=== PATIENT | male | born 1930 | race Asian ===

== ENCOUNTER → 2017-06-02 | Outpatient (CLI) | payer MEDICARE, OTHER ==
[~2017-06-02] MED LIST: ALLO100T PO; CIPR-278 PO; FINA5TAB41 PO; LEVO75 PO; METR500 PO; OMEP10 PO; SIMV5TAB6 PO
[2017-06-02 11:46] LABS: BASOPHILS # (AUTO) 0.04 K/uL (0.00-0.20); BASOPHILS % (AUTO) 0.6 % (0.0-2.0); EOSINOPHILS # (AUTO) 0.24 K/uL (0.00-0.70); EOSINOPHILS % (AUTO) 3.99 % (1.0-6.0); HEMATOCRIT 36.7 % (41-53); HEMOGLOBIN 12.3 g/dL (13.5-17.5); LYMPHOCYTES # (AUTO) 1.8 K/uL (1.0-4.8); MEAN CORPUSCULAR HGB CONC 33.5 G/dL (31.0-37.0); MEAN CORPUSCULAR VOLUME 96 fL (80-100); MONOCYTES # (AUTO) 0.5 K/uL (0.1-1.0); MONOCYTES % (AUTO) 8.8 % (2.0-9.0); NEUTROPHILS # (AUTO) 3.4 K/uL (1.8-7.7); NEUTROPHILS % (AUTO) 56.7 % (40.0-70.0); PLATELET COUNT (AUTO) 120 K/uL (150-450); RED BLOOD CELL COUNT(AUTO) 3.84 MIL/uL (4.50-5.90); RED CELL DISTRIBUTION WIDTH 15.3 % (11.5-14.5)
[2017-06-02 11:57] LABS: POTASSIUM 4.7 mmol/L (3.5-5.1)
[2017-06-02 11:58] LABS: CALCIUM, TOTAL 9.1 mg/dL (8.8-10.5); CREATININE 1.72 mg/dL (0.60-1.30); THYROID STIMULATING HORMONE 0.81 uIU/mL (0.36-3.74)
== END | disposition home or self-care (01) ==
LOC: LABPV 08:39
PROVIDERS: ATTEND Internal Medicine Nephrology
DX: N18.3 Chronic kidney disease, stage 3 (moderate) (principal); N28.1 Cyst of kidney, acquired; E78.5 Hyperlipidemia, unspecified
CPT/HCPCS: 82306; 84443

== ENCOUNTER → 2017-07-14 | Outpatient (CLI) | payer MEDICARE, OTHER ==
[2017-07-14 12:10] LABS: BASOPHILS % (AUTO) 0.3 % (0.0-2.0); EOSINOPHILS % (AUTO) 3.4 % (1.0-6.0); HEMATOCRIT 38.4 % (41-53); HEMOGLOBIN 12.8 g/dL (13.5-17.5); LYMPHOCYTES # (AUTO) 1.3 K/uL (1.0-4.8); LYMPHOCYTES % (AUTO) 21.3 % (22.0-44.0); MEAN CORPUSCULAR HEMOGLOBIN 32.2 pg (26.0-34.0); MEAN CORPUSCULAR HGB CONC 33.2 G/dL (31.0-37.0); MEAN CORPUSCULAR VOLUME 97 fL (80-100); MONOCYTES # (AUTO) 0.6 K/uL (0.1-1.0); MONOCYTES % (AUTO) 10.1 % (2.0-9.0); NEUTROPHILS # (AUTO) 3.9 K/uL (1.8-7.7); NEUTROPHILS % (AUTO) 64.9 % (40.0-70.0); PLATELET COUNT (AUTO) 151 K/uL (150-450); RED BLOOD CELL COUNT(AUTO) 3.96 MIL/uL (4.50-5.90); RED CELL DISTRIBUTION WIDTH 15.2 % (11.5-14.5)
[2017-07-14 12:20] LABS: ALBUMIN 3.6 g/dL (3.4-5.0); BILIRUBIN,TOTAL 0.5 mg/dL (0.1-1.0); CREATININE 1.43 mg/dL (0.60-1.30); POTASSIUM 4.2 mmol/L (3.5-5.1); TOTAL PROTEIN, SERUM 7.3 g/dL (6.4-8.2)
== END | disposition home or self-care (01) ==
LOC: LABPV 09:14
PROVIDERS: ATTEND Student in an Organized Health Care Education/Training Program
DX: B35.1 Tinea unguium (principal)

== ENCOUNTER → 2017-10-22 | Outpatient (CLI) | payer MEDICARE, OTHER | END | disposition home or self-care (01) | LOC: RADPV 08:38 | PROVIDERS: ATTEND Internal Medicine Pulmonary Disease | DX: J15.9 Unspecified bacterial pneumonia (principal); J98.4 Other disorders of lung; I70.0 Atherosclerosis of aorta | CPT/HCPCS: 71046 ==

== ENCOUNTER → 2017-10-30 | Outpatient (CLI) | payer MEDICARE, OTHER | END | disposition home or self-care (01) | LOC: RADMN 09:24 | PROVIDERS: ATTEND Internal Medicine Pulmonary Disease | DX: J84.89 Other specified interstitial pulmonary diseases (principal); I71.9 Aortic aneurysm of unspecified site, without rupture; I25.10 Atherosclerotic heart disease of native coronary artery without angina pectoris; I70.0 Atherosclerosis of aorta | CPT/HCPCS: 71250 ==

== ENCOUNTER → 2017-11-10 | Outpatient (CLI) | payer MEDICARE, OTHER ==
[2017-11-10 10:38] LABS: APPEARANCE,URINE CLEAR (CLEAR); BILIRUBIN,URINE NEGATIVE (NEGATIVE); GLUCOSE, URINE (UA) NEGATIVE (NEGATIVE); KETONES,URINE NEGATIVE (NEGATIVE); LEUKOCYTE ESTERASE ,URINE NEGATIVE (NEGATIVE); NITRATE,URINE NEGATIVE (NEGATIVE); OCCULT BLOOD,URINE NEGATIVE (NEGATIVE); PROTEIN,URINE TRACE (NEGATIVE); UROBILINOGEN,URINE 0.2 mg/dL (<=1.0)
[2017-11-10 10:44] LABS: CALCIUM, TOTAL 8.6 mg/dL (8.8-10.5); CREATININE 1.18 mg/dL (0.60-1.30); POTASSIUM 3.8 mmol/L (3.5-5.1)
== END | disposition home or self-care (01) ==
LOC: LABPV 08:31
PROVIDERS: ATTEND Internal Medicine Nephrology
DX: I12.9 Hypertensive chronic kidney disease with stage 1 through stage 4 chronic kidney disease, or unspecified chronic kidney disease (principal); N18.3 Chronic kidney disease, stage 3 (moderate); N28.1 Cyst of kidney, acquired; E78.5 Hyperlipidemia, unspecified
CPT/HCPCS: 83970

== ENCOUNTER → 2018-03-09 | Outpatient (CLI) | payer MEDICARE, OTHER ==
[2018-03-09 09:51] LABS: ALBUMIN 3.5 g/dL (3.4-5.0); BILIRUBIN,TOTAL 0.9 mg/dL (0.1-1.0); CALCIUM, TOTAL 8.9 mg/dL (8.8-10.5); CHOL/HDL RATIO 2.5 (4.2-7.3); CREATININE 1.47 mg/dL (0.60-1.30); POTASSIUM 4.1 mmol/L (3.5-5.1); THYROID STIMULATING HORMONE 1.34 uIU/mL (0.36-3.74); TOTAL PROTEIN, SERUM 7.5 g/dL (6.4-8.2)
== END | disposition home or self-care (01) ==
LOC: LABPV 07:50
PROVIDERS: ATTEND Internal Medicine Nephrology
DX: N18.3 Chronic kidney disease, stage 3 (moderate) (principal); N28.1 Cyst of kidney, acquired; E78.5 Hyperlipidemia, unspecified
CPT/HCPCS: 84443

== ENCOUNTER → 2018-07-20 | Outpatient (CLI) | payer MEDICARE, OTHER ==
[2018-07-20 10:08] LABS: CREATININE,URINE RANDOM 264.3 mg/dL (30.0-125.0)
[2018-07-20 15:45] LABS: CALCIUM, TOTAL 9.2 mg/dL (8.8-10.5); CREATININE 1.48 mg/dL (0.60-1.30); POTASSIUM 4.1 mmol/L (3.5-5.1)
== END | disposition home or self-care (01) ==
LOC: LABPV 08:09
PROVIDERS: ATTEND Internal Medicine Nephrology
DX: I12.9 Hypertensive chronic kidney disease with stage 1 through stage 4 chronic kidney disease, or unspecified chronic kidney disease (principal); N18.3 Chronic kidney disease, stage 3 (moderate); E78.5 Hyperlipidemia, unspecified
CPT/HCPCS: 82570; 84156

== ENCOUNTER → 2018-08-09 | Outpatient (CLI) | payer MEDICARE, OTHER | END | disposition home or self-care (01) | LOC: RADMN 08:43 | PROVIDERS: ATTEND Internal Medicine Pulmonary Disease | DX: J43.2 Centrilobular emphysema (principal); I51.7 Cardiomegaly; I71.9 Aortic aneurysm of unspecified site, without rupture; I70.0 Atherosclerosis of aorta; J84.112 Idiopathic pulmonary fibrosis; R59.1 Generalized enlarged lymph nodes; N28.89 Other specified disorders of kidney and ureter | CPT/HCPCS: 71250 ==

== ENCOUNTER → 2018-08-11 | Outpatient (CLI) | payer MEDICARE, OTHER | END | disposition home or self-care (01) | LOC: LABPV 08:28 | PROVIDERS: ATTEND Internal Medicine Pulmonary Disease | DX: J84.112 Idiopathic pulmonary fibrosis (principal) | CPT/HCPCS: 85651; 86038; 86256; 86430 ==

== ENCOUNTER → 2018-09-01 | Outpatient (CLI) | payer MEDICARE, OTHER ==
[2018-09-01 12:53] LABS: ALBUMIN 3.6 g/dL (3.4-5.0); BILIRUBIN,DIRECT 0.2 mg/dL (0.00-0.20); BILIRUBIN,TOTAL 0.5 mg/dL (0.1-1.0); TOTAL PROTEIN, SERUM 7.5 g/dL (6.4-8.2)
== END | disposition home or self-care (01) ==
LOC: LABPV 10:31
PROVIDERS: ATTEND Internal Medicine Pulmonary Disease
DX: J84.112 Idiopathic pulmonary fibrosis (principal)

== ENCOUNTER 2018-10-29 10:19 | Inpatient (IN) | payer MEDICARE, OTHER ==
[~2018-10-29] VITALS: Ht 154.9 cm; Wt 48.1 kg
[~2018-10-29 10:19] MED LIST changes: +ACLI400A2 IH; +ADV250 IH; +ALBU8HFA IH; -CIPR-278 PO; +DILT120C88 PO; +FLUT1BLS IH; +IPRAHFA IH; +MONT10TA21 PO; +SIMV5TAB59 PO; -SIMV5TAB6 PO
[2018-10-29] MEDS ORDERED: LEVO50 PO (10:56)
[2018-10-29] MEDS ORDERED: SIMV-260 PO (10:56)
[2018-10-29] MEDS ORDERED: OMEP20 PO (10:56)
[2018-10-29 11:47] LABS: BASOPHILS % (AUTO) 0.9 % (0.0-2.0); EOSINOPHILS % (AUTO) 0.9 % (1.0-6.0); HEMATOCRIT 43.5 % (41-53); HEMOGLOBIN 14.3 g/dL (13.5-17.5); LYMPHOCYTES # (AUTO) 2.5 K/uL (1.0-4.8); LYMPHOCYTES % (AUTO) 32.8 % (22.0-44.0); MEAN CORPUSCULAR HEMOGLOBIN 30.9 pg (26.0-34.0); MEAN CORPUSCULAR HGB CONC 32.9 G/dL (31.0-37.0); MEAN CORPUSCULAR VOLUME 94 fL (80-100); MONOCYTES # (AUTO) 0.6 K/uL (0.1-1.0); NEUTROPHILS # (AUTO) 4.3 K/uL (1.8-7.7); NEUTROPHILS % (AUTO) 57.4 % (40.0-70.0); RED BLOOD CELL COUNT(AUTO) 4.64 MIL/uL (4.50-5.90); RED CELL DISTRIBUTION WIDTH 17.6 % (11.5-14.5)
[2018-10-29 11:53] LABS: PLATELET COUNT (AUTO) 76 K/uL (150-450)
[2018-10-29 11:58] LABS: INR 1.1 (0.9-1.1); PROTHROMBIN TIME 11.1 SEC (9.4-11.6)
[2018-10-29 12:12] LABS: ALBUMIN 2.7 g/dL (3.4-5.0); BILIRUBIN,TOTAL 0.6 mg/dL (0.1-1.0); CALCIUM, TOTAL 8.7 mg/dL (8.8-10.5); CREATININE 1.43 mg/dL (0.60-1.30); POTASSIUM 4.7 mmol/L (3.5-5.1); TOTAL PROTEIN, SERUM 6.2 g/dL (6.4-8.2)
[2018-10-29] MEDS ORDERED: MethylPREDNISolone SOD SUCC 125 MG/2 ML VIAL IVP ONE (14:00)
[2018-10-29] MEDS ORDERED: ALBUTEROL SULFATE 2.5 MG/0.5 ML NEB SOLUTION NEB ONE (14:00)
[2018-10-29] MEDS ORDERED: CefTRIAXone 1 GM/DEXTROSE 50 ML IV ONE (14:00)
[2018-10-29] MEDS ORDERED: IPRATROPIUM BROMIDE 0.5 MG/2.5 ML NEB SOLUTION NEB ONE (14:00)
[2018-10-29] MEDS ORDERED: AZITHROMYCIN 500 MG/NS 250 ML IV ONE (14:00)
[2018-10-29 14:07] LABS: APPEARANCE,URINE CLEAR (CLEAR); BILIRUBIN,URINE NEGATIVE (NEGATIVE); GLUCOSE, URINE (UA) 100 mg/dL (NEGATIVE); KETONES,URINE NEGATIVE (NEGATIVE); LEUKOCYTE ESTERASE ,URINE NEGATIVE (NEGATIVE); NITRATE,URINE NEGATIVE (NEGATIVE); OCCULT BLOOD,URINE NEGATIVE (NEGATIVE); PH,URINE 5.5 (5.0-8.0); PROTEIN,URINE SEE CONFIRM (NEGATIVE); UROBILINOGEN,URINE 0.2 mg/dL (<=1.0)
[2018-10-29 14:14] LABS: SULFOSALICYLIC ACID,URINE Trace (Negative)
[2018-10-29 14:15] LABS: BACTERIA,URINE None Seen /HPF (None Seen); RBC,URINE None Seen /HPF (0-2); SQUAMOUS EPITHELIAL CELL,UR Few /LPF (None Seen); WBC,URINE 0-2 /HPF (0-5)
[2018-10-29] MEDS ORDERED: ACETAMINOPHEN 500 MG TABLET PO ONE (15:15)
[2018-10-29 18:59] VITALS: BP 131/78
[2018-10-29 19:57] VITALS: BP 121/60
[2018-10-29] MEDS: BUDESONIDE 0.5 MG/2 ML NEB SOLUTION NEB SCH (20:59)
[2018-10-29] MEDS ORDERED: ZOLPIDEM TARTRATE 5 MG TABLET PO PRN (23:15)
[2018-10-29] MEDS ORDERED: MAGNESIUM HYDROXIDE SUSPENSION 30 ML UDCUP PO PRN (23:15)
[2018-10-29] MEDS ORDERED: ONDANSETRON HCL 4 MG/2 ML VIAL IVP PRN (23:15)
[2018-10-29] MEDS ORDERED: BISACODYL 10 MG RECTAL RECTAL SUPPOSITORY PR PRN (23:15)
[2018-10-29] MEDS ORDERED: OxyCODONE HCL/ACETAMINOPHEN 5-325 MG TABLET PO PRN (23:15)
[2018-10-29] MEDS ORDERED: ALBUTEROL SULFATE 2.5 MG/0.5 ML NEB SOLUTION NEB PRN (23:15)
[2018-10-29] MEDS ORDERED: ACETAMINOPHEN 325 MG TABLET PO PRN (23:15)
[2018-10-29] MEDS ORDERED: MORPHINE SULFATE 4 MG/ML SYRINGE IVP PRN (23:15)
[2018-10-29 23:22] VITALS: BP 120/70
[2018-10-29] MEDS: MethylPREDNISolone SOD SUCC 125 MG/2 ML VIAL IVP SCH (23:38)
[2018-10-30] VITALS (7 sets, daily range): BP systolic 98–144; BP diastolic 50–78
[2018-10-30] MEDS ORDERED: HEPARIN SODIUM,PORCINE 5,000 UNITS/ML VIAL SQ SCH
[2018-10-30] MEDS ORDERED: MethylPREDNISolone SOD SUCC 125 MG/2 ML VIAL IVP SCH
[2018-10-30] MEDS: ALBUTEROL SULFATE 2.5 MG/0.5 ML NEB SOLUTION NEB SCH ×6 (01:05→23:27)
[2018-10-30] MEDS: IPRATROPIUM BROMIDE 0.5 MG/2.5 ML NEB SOLUTION NEB SCH ×6 (01:13→23:27)
[2018-10-30] MEDS: MethylPREDNISolone SOD SUCC 125 MG/2 ML VIAL IVP SCH ×4 (06:02→23:55)
[2018-10-30] MEDS: LEVOTHYROXINE SODIUM 50 MCG TABLET PO SCH (06:03)
[2018-10-30] MEDS: BUDESONIDE 0.5 MG/2 ML NEB SOLUTION NEB SCH ×2 (07:32→19:21)
[2018-10-30] MEDS: OMEPRAZOLE 20 MG CAPSULE PO SCH (08:17)
[2018-10-30] MEDS: DOCUSATE SODIUM 100 MG CAPSULE PO SCH ×2 (08:17→20:32)
[2018-10-30] MEDS: FINASTERIDE 5 MG TABLET PO SCH (08:17)
[2018-10-30] MEDS: ALLOPURINOL 100 MG TABLET PO SCH (08:17)
[2018-10-30] MEDS: MONTELUKAST SODIUM 10 MG TABLET PO SCH (08:17)
[2018-10-30] MEDS ORDERED: PANTOPRAZOLE SODIUM 40 MG DR TABLET PO SCH (09:00)
[2018-10-30] MEDS: AZITHROMYCIN 500 MG/NS 250 ML IV SCH (15:11)
[2018-10-30] MEDS: SIMVASTATIN 20 MG TABLET PO SCH (20:31)
[2018-10-30] MEDS: IPRATROPIUM BROMIDE 0.5 MG/2.5 ML NEB SOLUTION NEB PRN (21:43)
[2018-10-31] MEDS: IPRATROPIUM BROMIDE 0.5 MG/2.5 ML NEB SOLUTION NEB SCH ×6 (03:09→23:17)
[2018-10-31] MEDS: ALBUTEROL SULFATE 2.5 MG/0.5 ML NEB SOLUTION NEB SCH ×6 (03:09→23:17)
[2018-10-31 05:47] VITALS: BP 115/78
[2018-10-31] MEDS: LEVOTHYROXINE SODIUM 50 MCG TABLET PO SCH (06:25)
[2018-10-31] MEDS: OMEPRAZOLE 20 MG CAPSULE PO SCH (06:25)
[2018-10-31] MEDS: MethylPREDNISolone SOD SUCC 125 MG/2 ML VIAL IVP SCH ×4 (06:26→23:09)
[2018-10-31] MEDS: BUDESONIDE 0.5 MG/2 ML NEB SOLUTION NEB SCH ×2 (08:00→20:53)
[2018-10-31] MEDS: MONTELUKAST SODIUM 10 MG TABLET PO SCH (08:09)
[2018-10-31] MEDS: ALLOPURINOL 100 MG TABLET PO SCH (08:09)
[2018-10-31] MEDS: FINASTERIDE 5 MG TABLET PO SCH (08:09)
[2018-10-31] MEDS: DOCUSATE SODIUM 100 MG CAPSULE PO SCH ×2 (08:10→20:10)
[2018-10-31 08:16] VITALS: BP 126/86
[2018-10-31 11:21] VITALS: BP 119/77
[2018-10-31] MEDS: AZITHROMYCIN 500 MG/NS 250 ML IV SCH (14:14)
[2018-10-31] MEDS ORDERED: SODIUM CHLORIDE 0.9% 100 ML ONE (14:16)
[2018-10-31 15:43] VITALS: BP 117/75
[2018-10-31 19:48] VITALS: BP 109/66
[2018-10-31] MEDS: SIMVASTATIN 20 MG TABLET PO SCH (20:10)
[2018-10-31 23:48] VITALS: BP 106/77
[2018-11-01] MEDS: IPRATROPIUM BROMIDE 0.5 MG/2.5 ML NEB SOLUTION NEB SCH ×6 (03:35→22:35)
[2018-11-01] MEDS: ALBUTEROL SULFATE 2.5 MG/0.5 ML NEB SOLUTION NEB SCH ×5 (03:35→22:34)
[2018-11-01 04:27] VITALS: BP 142/73
[2018-11-01] MEDS: MethylPREDNISolone SOD SUCC 125 MG/2 ML VIAL IVP SCH (05:24)
[2018-11-01] MEDS: LEVOTHYROXINE SODIUM 50 MCG TABLET PO SCH (05:24)
[2018-11-01 07:22] VITALS: BP 158/69
[2018-11-01] MEDS: PredniSONE 20 MG TABLET PO SCH (08:03)
[2018-11-01] MEDS: DOCUSATE SODIUM 100 MG CAPSULE PO SCH ×3 (08:03→20:17)
[2018-11-01] MEDS: FINASTERIDE 5 MG TABLET PO SCH (08:03)
[2018-11-01] MEDS: OMEPRAZOLE 20 MG CAPSULE PO SCH (08:03)
[2018-11-01] MEDS: ALLOPURINOL 100 MG TABLET PO SCH (08:04)
[2018-11-01] MEDS: MONTELUKAST SODIUM 10 MG TABLET PO SCH (08:04)
[2018-11-01] MEDS: BUDESONIDE 0.5 MG/2 ML NEB SOLUTION NEB SCH ×2 (08:21→19:12)
[2018-11-01 11:37] VITALS: BP 145/84
[2018-11-01 14:29] LABS: BASOPHILS % (AUTO) 0.4 % (0.0-2.0); EOSINOPHILS % (AUTO) 0 % (1.0-6.0); HEMATOCRIT 39.3 % (41-53); HEMOGLOBIN 12.7 g/dL (13.5-17.5); LYMPHOCYTES % (AUTO) 23.2 % (22.0-44.0); MEAN CORPUSCULAR HEMOGLOBIN 30.1 pg (26.0-34.0); MEAN CORPUSCULAR HGB CONC 32.4 G/dL (31.0-37.0); MEAN CORPUSCULAR VOLUME 93 fL (80-100); MONOCYTES # (AUTO) 0.4 K/uL (0.1-1.0); NEUTROPHILS # (AUTO) 6.2 K/uL (1.8-7.7); NEUTROPHILS % (AUTO) 71.4 % (40.0-70.0); RED BLOOD CELL COUNT(AUTO) 4.22 MIL/uL (4.50-5.90); RED CELL DISTRIBUTION WIDTH 17.3 % (11.5-14.5)
[2018-11-01] MEDS: AZITHROMYCIN 500 MG/NS 250 ML IV SCH (14:31)
[2018-11-01 14:35] LABS: ANION GAP 10 mmol/L (8-16); CALCIUM, TOTAL 9.1 mg/dL (8.8-10.5); CARBON DIOXIDE 25 mmol/L (22-29); CHLORIDE 104 mmol/L (98-107); CREATININE 1.07 mg/dL (0.60-1.30); GLUCOSE,RANDOM 167 mg/dL (70-110); POTASSIUM 4.6 mmol/L (3.5-5.1); SODIUM SERUM 139 mmol/L (136-145); UREA NITROGEN, BLOOD 26 mg/dL (7-18)
[2018-11-01 14:36] LABS: GLOMERULAR FILTR. RATE CALC > 60 mL/min (>60)
[2018-11-01 14:41] LABS: ALANINE AMINOTRANSFERASE 51 U/L (12-78); ALBUMIN 2.5 g/dL (3.4-5.0); ALKALINE PHOSPHATASE 116 U/L (46-116); ASPARTATE AMINOTRANSFERASE 72 U/L (15-37); BILIRUBIN,TOTAL 0.5 mg/dL (0.1-1.0); TOTAL PROTEIN, SERUM 5.5 g/dL (6.4-8.2)
[2018-11-01 14:45] LABS: PLATELET COUNT (AUTO) 68 K/uL (150-450)
[2018-11-01 15:38] VITALS: BP 129/77
[2018-11-01 20:10] VITALS: BP 130/83
[2018-11-01] MEDS: SIMVASTATIN 20 MG TABLET PO SCH (20:17)
[2018-11-01 23:42] VITALS: BP 111/69
[2018-11-02] MEDS: ALBUTEROL SULFATE 2.5 MG/0.5 ML NEB SOLUTION NEB SCH ×4 (02:39→12:41)
[2018-11-02] MEDS: IPRATROPIUM BROMIDE 0.5 MG/2.5 ML NEB SOLUTION NEB SCH ×6 (02:39→22:38)
[2018-11-02 04:30] VITALS: BP 131/74
[2018-11-02] MEDS: LEVOTHYROXINE SODIUM 50 MCG TABLET PO SCH (06:31)
[2018-11-02 07:18] LABS: HEMATOCRIT 44.6 % (41-53); HEMOGLOBIN 14.5 g/dL (13.5-17.5); MEAN CORPUSCULAR HEMOGLOBIN 30.4 pg (26.0-34.0); MEAN CORPUSCULAR HGB CONC 32.6 G/dL (31.0-37.0); MEAN CORPUSCULAR VOLUME 93 fL (80-100); PLATELET COUNT (AUTO) 62 K/uL (150-450); RED BLOOD CELL COUNT(AUTO) 4.77 MIL/uL (4.50-5.90); RED CELL DISTRIBUTION WIDTH 17.7 % (11.5-14.5)
[2018-11-02] MEDS: BUDESONIDE 0.5 MG/2 ML NEB SOLUTION NEB SCH ×2 (07:38→19:25)
[2018-11-02 07:41] VITALS: BP 143/91
[2018-11-02 07:57] LABS: ALBUMIN 2.8 g/dL (3.4-5.0); BILIRUBIN,TOTAL 0.8 mg/dL (0.1-1.0); CALCIUM, TOTAL 9.2 mg/dL (8.8-10.5); CREATININE 1.18 mg/dL (0.60-1.30); POTASSIUM 4.2 mmol/L (3.5-5.1)
[2018-11-02] MEDS: DOCUSATE SODIUM 100 MG CAPSULE PO SCH ×2 (09:06→21:02)
[2018-11-02] MEDS: PredniSONE 20 MG TABLET PO SCH (09:06)
[2018-11-02] MEDS: OMEPRAZOLE 20 MG CAPSULE PO SCH (09:07)
[2018-11-02] MEDS: ALLOPURINOL 100 MG TABLET PO SCH (09:07)
[2018-11-02] MEDS: MONTELUKAST SODIUM 10 MG TABLET PO SCH (09:07)
[2018-11-02] MEDS: FINASTERIDE 5 MG TABLET PO SCH (09:08)
[2018-11-02 09:53] LABS: BAND NEUTROPHILS % (MANUAL) 2 % (0-5); LYMPHOCYTES % (MANUAL) 39 % (22-44); MONOCYTES % (MANUAL) 9 % (2-9); SEGMENTED NEUTROPHILS % 44 % (40-70)
[2018-11-02 11:16] VITALS: BP 138/78
[2018-11-02 11:16] LABS: OTHER CELLS,MANUAL % 6 (0-0)
[2018-11-02] MEDS ORDERED: 0.9% SODIUM CHLORIDE 5 ML NEB SOLUTION NEB ONE (12:34)
[2018-11-02] MEDS: IPRATROPIUM BROMIDE 0.5 MG/2.5 ML NEB SOLUTION NEB PRN (12:36)
[2018-11-02] MEDS ORDERED: DILTIAZEM HCL CD 120 MG ER CAPSULE PO SCH (12:45)
[2018-11-02] MEDS ORDERED: LEVALBUTEROL HCL 1.25 MG/0.5 ML NEB SOLUTION NEB PRN (13:15)
[2018-11-02] MEDS: LEVALBUTEROL HCL 1.25 MG/0.5 ML NEB SOLUTION NEB SCH ×3 (14:47→22:38)
[2018-11-02 15:06] VITALS: BP 130/78
[2018-11-02] MEDS: AZITHROMYCIN 500 MG/NS 250 ML IV SCH (16:53)
[2018-11-02 19:33] VITALS: BP 95/54
[2018-11-02] MEDS: SIMVASTATIN 20 MG TABLET PO SCH (21:02)
[2018-11-02] MEDS: DILTIAZEM HCL CD 120 MG ER CAPSULE PO SCH (23:17)
[2018-11-02 23:50] VITALS: BP 97/54
[2018-11-03] VITALS (7 sets, daily range): BP systolic 94–104; BP diastolic 52–68
[2018-11-03 00:05] LABS: ABG A-A DIFF O2 577.2 mmHg (10-20.0); ABG BASE EXCESS 2.1 mmol/L (-2.0-3.0); ABG HCO3 26.7 mmol/L (22.0-26.0); ABG METHEMOGLOBIN 0.3 % (0.0-1.5); ABG OXYGEN CONTENT 18.3 mL/dL (15.0-23.0); ABG OXYGEN SATURATION 97.8 % (95.0-98.0); ABG OXYHEMOGLOBIN 96.5 % (94.0-100.0); ABG PCO2 33 mmHg (35-45); ABG PH 7.497 (7.35-7.450); ABG TOTAL HEMOGLOBIN 13.4 G/dL (12.0-18.0); PO2, ARTERIAL BG 102.4 mmHg (71.0-79.0); SOURCE, BLOOD GAS ARTERIAL; TEMPERATURE, FAHRENHEIT, BG 98.6 FAHREN (96.0-98.6)
[2018-11-03 00:06] LABS: O2 DEVICE,BLOOD GAS NON REBREATHER (ROOM AIR); SITE, BLOOD GAS RT RADIAL
[2018-11-03] MEDS ORDERED: DIGOXIN 250 MCG/ML 2 ML AMP IVP ONE (00:45)
[2018-11-03] MEDS: IPRATROPIUM BROMIDE 0.5 MG/2.5 ML NEB SOLUTION NEB SCH ×6 (02:50→23:13)
[2018-11-03] MEDS: LEVALBUTEROL HCL 1.25 MG/0.5 ML NEB SOLUTION NEB SCH ×6 (02:50→23:13)
[2018-11-03] MEDS: LEVOTHYROXINE SODIUM 50 MCG TABLET PO SCH (06:22)
[2018-11-03 07:09] LABS: HEMATOCRIT 38.5 % (41-53); HEMOGLOBIN 12.6 g/dL (13.5-17.5); MEAN CORPUSCULAR HEMOGLOBIN 29.9 pg (26.0-34.0); MEAN CORPUSCULAR HGB CONC 32.8 G/dL (31.0-37.0); MEAN CORPUSCULAR VOLUME 91 fL (80-100); PLATELET COUNT (AUTO) 43 K/uL (150-450); RED BLOOD CELL COUNT(AUTO) 4.23 MIL/uL (4.50-5.90); RED CELL DISTRIBUTION WIDTH 17.4 % (11.5-14.5)
[2018-11-03 07:24] LABS: ALBUMIN 2.3 g/dL (3.4-5.0); BILIRUBIN,TOTAL 1.1 mg/dL (0.1-1.0); CREATININE 1.5 mg/dL (0.60-1.30); TOTAL PROTEIN, SERUM 5.1 g/dL (6.4-8.2)
[2018-11-03] MEDS: BUDESONIDE 0.5 MG/2 ML NEB SOLUTION NEB SCH ×2 (07:46→19:43)
[2018-11-03 08:50] LABS: BAND NEUTROPHILS % (MANUAL) 3 % (0-5); LYMPHOCYTES % (MANUAL) 45 % (22-44); MONOCYTES % (MANUAL) 10 % (2-9); REACTIVE LYMPHOCYTES 5 % (0-0); SEGMENTED NEUTROPHILS % 37 % (40-70)
[2018-11-03] MEDS: ALLOPURINOL 100 MG TABLET PO SCH (09:03)
[2018-11-03] MEDS: FINASTERIDE 5 MG TABLET PO SCH (09:03)
[2018-11-03] MEDS: OMEPRAZOLE 20 MG CAPSULE PO SCH (09:03)
[2018-11-03] MEDS: MONTELUKAST SODIUM 10 MG TABLET PO SCH (09:04)
[2018-11-03] MEDS: DOCUSATE SODIUM 100 MG CAPSULE PO SCH ×2 (09:04→21:04)
[2018-11-03] MEDS: PredniSONE 20 MG TABLET PO SCH (09:04)
[2018-11-03] MEDS: DILTIAZEM HCL CD 120 MG ER CAPSULE PO SCH ×2 (09:12→21:00)
[2018-11-03] MEDS: MethylPREDNISolone SOD SUCC 125 MG/2 ML VIAL IVP SCH ×3 (14:07→23:37)
[2018-11-03] MEDS: AZITHROMYCIN 500 MG/NS 250 ML IV SCH (14:14)
[2018-11-03] MEDS: SIMVASTATIN 20 MG TABLET PO SCH (21:04)
[2018-11-04] MEDS: IPRATROPIUM BROMIDE 0.5 MG/2.5 ML NEB SOLUTION NEB SCH ×4 (02:58→15:39)
[2018-11-04] MEDS: LEVALBUTEROL HCL 1.25 MG/0.5 ML NEB SOLUTION NEB SCH ×4 (02:58→15:39)
[2018-11-04 05:00] VITALS: BP 101/59
[2018-11-04] MEDS: LEVOTHYROXINE SODIUM 50 MCG TABLET PO SCH (05:58)
[2018-11-04] MEDS: MethylPREDNISolone SOD SUCC 125 MG/2 ML VIAL IVP SCH ×2 (05:58→11:33)
[2018-11-04 06:29] LABS: ALBUMIN 2.3 g/dL (3.4-5.0); BILIRUBIN,TOTAL 1.3 mg/dL (0.1-1.0); CALCIUM, TOTAL 8.9 mg/dL (8.8-10.5); CREATININE 1.98 mg/dL (0.60-1.30); POTASSIUM 4.8 mmol/L (3.5-5.1); TOTAL PROTEIN, SERUM 5.4 g/dL (6.4-8.2)
[2018-11-04 06:42] LABS: BASOPHILS % (AUTO) 0.7 % (0.0-2.0); EOSINOPHILS % (AUTO) 0 % (1.0-6.0); HEMATOCRIT 38.4 % (41-53); HEMOGLOBIN 12.5 g/dL (13.5-17.5); LYMPHOCYTES # (AUTO) 4.5 K/uL (1.0-4.8); LYMPHOCYTES % (AUTO) 48.1 % (22.0-44.0); MEAN CORPUSCULAR HEMOGLOBIN 30.2 pg (26.0-34.0); MEAN CORPUSCULAR HGB CONC 32.7 G/dL (31.0-37.0); MEAN CORPUSCULAR VOLUME 92 fL (80-100); MONOCYTES % (AUTO) 10.3 % (2.0-9.0); NEUTROPHILS # (AUTO) 3.8 K/uL (1.8-7.7); NEUTROPHILS % (AUTO) 40.9 % (40.0-70.0); PLATELET COUNT (AUTO) 48 K/uL (150-450); RED BLOOD CELL COUNT(AUTO) 4.15 MIL/uL (4.50-5.90); RED CELL DISTRIBUTION WIDTH 17.7 % (11.5-14.5)
[2018-11-04 07:39] VITALS: BP 114/83
[2018-11-04] MEDS: BUDESONIDE 0.5 MG/2 ML NEB SOLUTION NEB SCH (08:30)
[2018-11-04] MEDS: FINASTERIDE 5 MG TABLET PO SCH (08:50)
[2018-11-04] MEDS: DILTIAZEM HCL CD 120 MG ER CAPSULE PO SCH (08:50)
[2018-11-04] MEDS: ALLOPURINOL 100 MG TABLET PO SCH (08:50)
[2018-11-04] MEDS: MONTELUKAST SODIUM 10 MG TABLET PO SCH (08:50)
[2018-11-04] MEDS: DOCUSATE SODIUM 100 MG CAPSULE PO SCH (08:50)
[2018-11-04] MEDS: OMEPRAZOLE 20 MG CAPSULE PO SCH (08:50)
[2018-11-04] MEDS ORDERED: FUROSEMIDE 40 MG/4 ML VIAL IVP ONE ×2 (10:15)
[2018-11-04] MEDS ORDERED: AMIODARONE HCL 150 MG in DEXTROSE 5%-WATER 97 ML IV ONE (11:20)
[2018-11-04] MEDS ORDERED: AMIODARONE HCL 360 MG in DEXTROSE 5%-WATER 242.8 ML IV ONE (11:30)
[2018-11-04] MEDS ORDERED: PHENYLEPHRINE 200 MG/D5%-WATER 250 ML IV PRN (11:39)
[2018-11-04] MEDS ORDERED: DIGOXIN 250 MCG/ML 2 ML AMP IVP ONE ×2 (11:45→15:15)
[2018-11-04 12:00] VITALS: BP 94/54
[2018-11-04] MEDS ORDERED: ETOMIDATE 2 MG/ML 10 ML VIAL IVP ONE ×2 (12:00→17:05)
[2018-11-04] MEDS ORDERED: VECURONIUM BROMIDE 10 MG/VIAL IVP ONE ×2 (12:00→17:05)
[2018-11-04] MEDS: AZITHROMYCIN 500 MG/NS 250 ML IV SCH (14:43)
[2018-11-04] MEDS ORDERED: RAPID SEQUENCE KIT [RSI] 1 EACH KIT ONE (15:27)
[2018-11-04 15:35] LABS: ABG A-A DIFF O2 616.9 mmHg (10-20.0); ABG BASE EXCESS -5.8 mmol/L (-2.0-3.0); ABG CARBOXYHEMOGLOBIN 0.5 % (0.0-1.5); ABG HCO3 19.4 mmol/L (22.0-26.0); ABG METHEMOGLOBIN 0.3 % (0.0-1.5); ABG OXYGEN CONTENT 16.2 mL/dL (15.0-23.0); ABG OXYGEN SATURATION 83.1 % (95.0-98.0); ABG OXYHEMOGLOBIN 82.4 % (94.0-100.0); ABG PCO2 45 mmHg (35-45); ABG PH 7.283 (7.35-7.450); O2 DEVICE,BLOOD GAS BIPAP (ROOM AIR); PO2, ARTERIAL BG 51.8 mmHg (71.0-79.0); SITE, BLOOD GAS LFT RADIAL; SOURCE, BLOOD GAS ARTERIAL; TEMPERATURE, FAHRENHEIT, BG 98.1 FAHREN (96.0-98.6)
[2018-11-04 15:36] LABS: INSPIRATORY TIME, BG 0.9 SEC; SPONTANEOUS VT, BG 500 ml
[2018-11-04 16:00] VITALS: BP 102/47
[2018-11-04] MEDS ORDERED: FUROSEMIDE 40 MG/4 ML VIAL IVP SCH (16:00)
[2018-11-04 17:30] VITALS: BP 69/29
[2018-11-04] MEDS ORDERED: AMIODARONE HCL 540 MG in DEXTROSE 5%-WATER 239.2 ML IV ONE (17:30)
[2018-11-04] MEDS ORDERED: SODIUM CHLORIDE 0.9% 500 ML IV ONE ×2 (17:37→17:45)
[2018-11-04] MEDS ORDERED: NOREPINEPHRINE 4 MG/D5%-WATER 250 ML IV PRN (17:37)
[2018-11-04 17:43] LABS: ABG A-A DIFF O2 582.9 mmHg (10-20.0); ABG BASE EXCESS -12.4 mmol/L (-2.0-3.0); ABG CARBOXYHEMOGLOBIN 0.2 % (0.0-1.5); ABG HCO3 13.9 mmol/L (22.0-26.0); ABG METHEMOGLOBIN 0.1 % (0.0-1.5); ABG OXYGEN SATURATION 80.5 % (95.0-98.0); ABG OXYHEMOGLOBIN 80.3 % (94.0-100.0); ABG PCO2 70 mmHg (35-45); ABG PH 7.035 (7.35-7.450); ABG TOTAL HEMOGLOBIN 14.2 G/dL (12.0-18.0); O2 DEVICE,BLOOD GAS VENTILATOR (ROOM AIR); PO2, ARTERIAL BG 60.9 mmHg (71.0-79.0); SITE, BLOOD GAS LFT RADIAL; SOURCE, BLOOD GAS ARTERIAL; TEMPERATURE, FAHRENHEIT, BG 98.1 FAHREN (96.0-98.6)
[2018-11-04 17:44] LABS: PEEP,BG 12 cm H2O; VT, ABG 450 ml
[2018-11-04] MEDS ORDERED: ALBUMIN HUMAN 25%-25GM/100ML 100 ML IV ONE (17:45)
[2018-11-04] MEDS ORDERED: PIPERACILLIN SODIUM/TAZOBACTAM 2.25 GM in DEXTROSE 5%-WATER 50 ML IV SCH (18:00)
[2018-11-04] MEDS ORDERED: SODIUM BICARBONATE 150 MEQ in DEXTROSE 5%-WATER 1,000 ML IV SCH (18:00)
[2018-11-04] MEDS ORDERED: SODIUM BICARBONATE [ADULT] 8.4% 50 MEQ/50 ML SYRINGE IVP ONE (18:24)
[2018-11-04] MEDS ORDERED: CALCIUM CHLORIDE 100 MG/ML 10 ML SYRINGE IVP ONE (18:24)
[2018-11-04] MEDS ORDERED: EPINEPHrine 1:10,000 [1 MG/10 ML] SYRINGE IVP ONE (18:24)
[2018-11-05] MEDS ORDERED: AMIODARONE HCL 750 MG in DEXTROSE 5%-WATER 485 ML IV SCH (11:30)
== END 2018-11-04 18:25 | disposition expired | DRG 208 ==
LOC: EMS 10:20 → 5S 17:14 → 5N 11-02 20:24 → ICU 11-04 11:01
PROVIDERS: ADMIT Hospitalist; ATTEND Hospitalist
PROC: 02HV33Z Insertion of Infusion Device into Superior Vena Cava, Percutaneous Approach (ICD-10-PCS; principal; 2018-11-04)
PROC: 5A1935Z Respiratory Ventilation, Less than 24 Consecutive Hours (ICD-10-PCS; 2018-11-04)
PROC: 02H633Z Insertion of Infusion Device into Right Atrium, Percutaneous Approach (ICD-10-PCS; 2018-11-04)
PROC: B548ZZA Ultrasonography of Superior Vena Cava, Guidance (ICD-10-PCS; 2018-11-04)
PROC: 0BH18EZ Insertion of Endotracheal Airway into Trachea, Via Natural or Artificial Opening Endoscopic (ICD-10-PCS; 2018-11-04)
DX: J96.21 Acute and chronic respiratory failure with hypoxia (principal); E43 Unspecified severe protein-calorie malnutrition; N17.9 Acute kidney failure, unspecified; J44.1 Chronic obstructive pulmonary disease with (acute) exacerbation; Z68.1 Body mass index [BMI] 19.9 or less, adult; J45.901 Unspecified asthma with (acute) exacerbation; J96.11 Chronic respiratory failure with hypoxia; E03.9 Hypothyroidism, unspecified; E78.5 Hyperlipidemia, unspecified; D69.6 Thrombocytopenia, unspecified; J84.10 Pulmonary fibrosis, unspecified; M10.9 Gout, unspecified; I48.91 Unspecified atrial fibrillation; I49.1 Atrial premature depolarization; I49.3 Ventricular premature depolarization; I50.9 Heart failure, unspecified; I11.0 Hypertensive heart disease with heart failure; K21.9 Gastro-esophageal reflux disease without esophagitis; E78.00 Pure hypercholesterolemia, unspecified; E86.0 Dehydration; I70.0 Atherosclerosis of aorta; N40.0 Benign prostatic hyperplasia without lower urinary tract symptoms; Z80.0 Family history of malignant neoplasm of digestive organs; Z68.20 Body mass index [BMI] 20.0-20.9, adult; Z82.49 Family history of ischemic heart disease and other diseases of the circulatory system; Z83.3 Family history of diabetes mellitus; Z87.891 Personal history of nicotine dependence; Z99.81 Dependence on supplemental oxygen
CPT/HCPCS: 36600; 82805; 87081; 92950; 93005; 93306; 94002; 94640; 94660; 96365; 96367; 97116; 97162; 97530; G0378; J0171; J0282; J0456; J0696; J1160; J1940; J2370; J2543; J2930; J3490; J7040; J7050; J7060; P9046